=== PATIENT | female | born 1970 | race Caucasian/White ===

== ENCOUNTER 2016-06-02 11:35 | Emergency (ER) | payer SELFPAY ==
--- NOTE | 2016-06-02 12:24 | ER Document Report ---
ED Medical Screen (RME) - General Stated Complaint: SORE THROAT Notes: 45 yo female c/o fever, bodyaches, sore throat, ear pain x 2 days. no known sick exposures. no flu shot this season. self pay TRAVEL OUTSIDE OF THE [place] IN LAST 30 DAYS: No - Related Data Allergies/Adverse Reactions: Penicillins Allergy (Verified 07/13/14 17:53) Sulfa (Sulfonamide Antibiotics) Allergy (Verified 07/13/14 17:53) Past Medical History Endocrine Medical History: Denies: Hx Diabetes Mellitus Type 2 Psychiatric Medical History: Reports: Hx Depression Past Surgical History: Reports: Hx Section - x 2, Hx Gynecologic Surgery - reports unable to get now, Hx Orthopedic Surgery - great toe right foot, tendon loosened in right wrist - Immunizations Hx Diphtheria, Pertussis, Tetanus Vaccination: Yes Physical Exam - Vital signs Vitals: Temp Pulse Resp BP Pulse Ox 102.7 F H 106 H 20 144/90 H 99 06/02/16 11:56 06/02/16 11:56 06/02/16 11:56 06/02/16 11:56 06/02/16 11:56 Course - Vital Signs Vital signs: Temp Pulse Resp BP Pulse Ox 102.7 F H 106 H 20 144/90 H 99 06/02/16 11:56 06/02/16 11:56 06/02/16 11:56 06/02/16 11:56 06/02/16 11:56
[2016-06-02] MEDS ORDERED: KETOROLAC TROMETHAMINE 60 MG/2 ML SDV IM ONE (13:01)
[2016-06-02] MEDS ORDERED: DEXAMETHASONE SOD PHOS INJ 10 MG/1 ML VIAL IM ONE (13:01)
--- NOTE | 2016-06-02 13:08 | ER Document Report ---
ED Flu Like - General Chief Complaint: Fever Stated Complaint: SORE THROAT Time seen by provider: 13:03 Mode of Arrival: Ambulatory Information source: Patient Notes: 45-year-old female presents to ED for sore throat ear pain bodyaches and fever for the last 2 days. TRAVEL OUTSIDE OF THE [place] IN LAST 30 DAYS: No - HPI Onset: Other - 2 days Timing/Duration: Intermittent Quality of pain: Achy, Other - Sore throat Severity: Moderate Pain Level: 4 Associated symptoms: Body/muscle aches, Earache, Fever, Sore throat Similar symptoms previously: No Recently seen / treated by doctor: No - Related Data Allergies/Adverse Reactions: Penicillins Allergy (Verified 06/02/16 12:24) Sulfa (Sulfonamide Antibiotics) Allergy (Verified 06/02/16 12:24) Past Medical History - General Information source: Patient - Social History Smoking Status: Current Every Day Smoker Cigarette use (# per day): Yes - pack per day Chew tobacco use (# tins/day): No Smoking Education Provided: Yes - less than 2 minutes Frequency of alcohol use: Social Drug Abuse: None Occupation: [employer] Lives with: Friend Family History: Malignancy Patient has suicidal ideation: No Patient has homicidal ideation: No - Past Medical History Cardiac Medical History: Reports: None Pulmonary Medical History: Reports: None EENT Medical History: Reports: None Neurological Medical History: Reports: None Endocrine Medical History: Reports: None Renal/ Medical History: Reports: None Malignancy Medical History: Reports: None GI Medical History: Reports: None Musculoskeltal Medical History: Reports None Skin Medical History: Reports None Psychiatric Medical History: Reports: Hx Depression Traumatic Medical History: Reports: None Infectious Medical History: Reports: None Past Surgical History: Reports: Hx Section - x 2, Hx Gynecologic Surgery - reports unable to get now, Hx Orthopedic Surgery - great toe right foot, tendon loosened in right wrist - Immunizations Hx Diphtheria, Pertussis, Tetanus Vaccination: Yes Review of Systems - Review of Systems Constitutional: Fever, Recent illness EENT: Ear pain, Nose discharge, Throat pain Cardiovascular: No symptoms reported Respiratory: Cough Gastrointestinal: No symptoms reported Genitourinary: No symptoms reported Female Genitourinary: No symptoms reported Musculoskeletal: No symptoms reported Skin: No symptoms reported Hematologic/Lymphatic: No symptoms reported Neurological/Psychological: No symptoms reported Physical Exam - Vital signs Vitals: Temp Pulse Resp BP Pulse Ox 102.7 F H 106 H 20 144/90 H 99 06/02/16 11:56 06/02/16 11:56 06/02/16 11:56 06/02/16 11:56 06/02/16 11:56 Interpretation: Normal - General General appearance: Appears well, Alert - HEENT Head: Normocephalic, Atraumatic Eyes: Normal Pupils: PERRL Ears: Normal External canal: Normal Tympanic membrane: Normal Sinus: Normal Nasal: Purulent discharge, Swelling Mouth/Lips: Normal Mucous membranes: Normal Pharynx: Normal Neck: Normal - Respiratory Respiratory status: No respiratory distress Chest status: Nontender Breath sounds: Nonproductive cough Chest palpation: Normal - Cardiovascular Rhythm: Regular Heart sounds: Normal auscultation Murmur: No - Abdominal Inspection: Normal Distension: No distension Bowel sounds: Normal Tenderness: Nontender Organomegaly: No organomegaly - Back Back: Normal, Nontender - Extremities General upper extremity: Normal inspection, Nontender, Normal color, Normal ROM , Normal temperature General lower extremity: Normal inspection, Nontender, Normal color, Normal ROM , Normal temperature, Normal weight bearing. No: Angela's sign - Neurological Neuro grossly intact: Yes Cognition: Normal Orientation: AAOx4 [place] Coma Scale Eye Opening: Spontaneous [place] Coma Scale Verbal: Oriented [place] Coma Scale Motor: Obeys Commands [place] Coma Scale Total: 15 Speech: Normal Motor strength normal: LUE, RUE, LLE, RLE Sensory: Normal - Psychological Associated symptoms: Normal affect, Normal mood - Skin Skin Temperature: Warm Skin Moisture: Dry Skin Color: Normal Course - Re-evaluation Re-evalutation: 06/02/16 14:22 Temperature 100.1 pulse 103 at discharge. Patient was treated with Toradol Decadron and azithromycin for her strep throat due to her allergy to penicillin. We'll discharge home with prescription for azithromycin. - Vital Signs Vital signs: Temp Pulse Resp BP Pulse Ox 102.7 F H 106 H 20 144/90 H 99 06/02/16 11:56 06/02/16 11:56 06/02/16 11:56 06/02/16 11:56 06/02/16 11:56 Discharge - Discharge Clinical Impression: Strep pharyngitis Condition: Stable Disposition: HOME, SELF-CARE Instructions: Family Physicians / Practices Additional Instructions: STREP THROAT: Your sore throat is due to the streptococcus germ (strep throat). Strep throat usually makes you feel quite ill with fever and aches, headache, swollen sore throat, and tender bumps under the angles of the jaw. Strep throat requires antibiotic treatment. Although the sore throat may go away by itself, complications such as rheumatic fever, kidney disease, or throat abscess can occur. We usually prescribe antibiotics by mouth. Be sure to take the medicine until it's gone. If you stop early, the strep may come back. If you are vomiting, are severely ill, or can't remember to take pills, we can give you an antibiotic shot. Take acetaminophen or ibuprofen for pain and fever. Sip frequent clear liquids, or use popsicles or ice chips. Anesthetic sprays or lozenges may help. Make sure the air in the room is not too dry. Avoid using decongestants or antihistamines. Call the doctor if there is no improvement in three days, or if you have difficulty breathing, increasing throat pain, high fever, rash, or frequent vomiting. Azithromycin Azithromycin (Zithromax) is a broad spectrum antibiotic in the same class as erythromycin. It can treat a variety of bacterial infections, but is most frequently used for respiratory infections. Azithromycin is extremely long-lasting. It accumulates in body tissues and continues to kill bacteria for many days. In order to improve absorption, Azithromycin should be taken at least one hour before or two hours after a meal. It does not have the same strong tendency to upset the stomach as erythromycin and is usually very well tolerated. Patients who have had a rash or other true allergic reactions to erythromycin should not take this medication. Call if you develop gastrointestinal distress, severe diarrhea, rash, hives, itching, or shortness of breath. STEROID MEDICATION: You have been given a medicine of the cortisone/steroid class. This medication is used to control inflammation or allergy. It is usually only given for a short period of time, until the acute process subsides. There are usually no side effects from short-term use of cortisone-like medications. Some persons feel an increased sense of well-being and are not sleepy at bedtime. Long-term use of cortisone medications is best avoided, unless required for a severe condition. If your condition does not remit, or relapses after the course of corticosteroid medication, you should consult your physician. Toradol Injection You have been given an injection of ketorolac tromethamine (Toradol). This is an excellent, safe drug for pain control. It also has potent antiinflammatory action. You should have significant pain relief within about one hour. Toradol is not addicting and is non-sedating. It does not interfere with driving or work. Call or return if you develop itching, hives, shortness of breath, or rash. FOLLOW-UP CARE: If you have been referred to a physician for follow-up care, call the physician s office for an appointment as you were instructed or within the next two days. If you experience worsening or a significant change in your symptoms, notify the physician immediately or return to the Emergency Department at any time for re-evaluation. Prescriptions: Azithromycin [Zithromax 250 mg Tablet] 250 mg PO ASDIR PRN #6 tablet PRN Reason: Forms: Elevated Blood Pressure, Smoking Cessation Education, Return to Work
[2016-06-02] MEDS ORDERED: AZITHROMYCIN 250 MG TABLET PO ONE (13:21)
[2016-06-02 14:32] VITALS: BP 132/79
== END 2016-06-02 14:28 | disposition home or self-care (01) ==
LOC: ER 11:35
DX: J02.0 Streptococcal pharyngitis (principal); R50.9 Fever, unspecified; J02.9 Acute pharyngitis, unspecified; H92.09 Otalgia, unspecified ear; R52 Pain, unspecified; F17.210 Nicotine dependence, cigarettes, uncomplicated
CPT/HCPCS: 99283; 96372; 87880; 87804; J1885; J1100

== ENCOUNTER 2016-06-05 10:13 | Emergency (ER) | payer SELFPAY ==
--- NOTE | 2016-06-05 10:20 | ER Document Report ---
ED Medical Screen (RME) - General Stated Complaint: SORE THROAT Time seen by provider: 10:19 Mode of Arrival: Ambulatory Information source: Patient Notes: 45-year-old female with persistent sore throat since Tuesday. The gaze azithromycin that she was prescribed is not helping with the symptoms. Vital signs are stable in triage. TRAVEL OUTSIDE OF THE [place] IN LAST 30 DAYS: No - Related Data Allergies/Adverse Reactions: Penicillins Allergy (Verified 06/05/16 10:18) Sulfa (Sulfonamide Antibiotics) Allergy (Verified 06/05/16 10:18) Past Medical History Endocrine Medical History: Denies: Hx Diabetes Mellitus Type 2 Renal/ Medical History: Denies: Hx Peritoneal Dialysis Psychiatric Medical History: Reports: Hx Depression Past Surgical History: Reports: Hx Section - x 2, Hx Gynecologic Surgery - reports unable to get now, Hx Orthopedic Surgery - great toe right foot, tendon loosened in right wrist - Immunizations Hx Diphtheria, Pertussis, Tetanus Vaccination: Yes Physical Exam - Vital signs Vitals: Temp Pulse Resp BP Pulse Ox 98.1 F 98 16 152/93 H 99 06/05/16 10:18 06/05/16 10:18 06/05/16 10:18 06/05/16 10:18 06/05/16 10:18 Course - Vital Signs Vital signs: Temp Pulse Resp BP Pulse Ox 98.1 F 98 16 152/93 H 99 06/05/16 10:18 06/05/16 10:18 06/05/16 10:18 06/05/16 10:18 06/05/16 10:18
--- NOTE | 2016-06-05 10:43 | ER Document Report ---
HPI - HPI Patient complains to provider of: sore throat Onset: Last week Onset/Duration: Persistent Quality of pain: Achy Pain Level: 4 Context: Patient complains of sore throat and right ear pain. Patient reports being here 3 days ago being diagnosed with strep pharyngitis. Patient is still taking her antibiotic that she was prescribed from her visit 3 days ago. Patient complains of continued pain which prompted her visit today. Associated Symptoms: Earache, Sore throat. denies: Fever Exacerbated by: Denies Relieved by: Denies Similar symptoms previously: Yes Recently seen / treated by doctor: Yes - ROS ROS below otherwise negative: Yes Systems Reviewed and Negative: Yes All other systems reviewed and negative - EENT EENT: REPORTS: Sore Throat, Ear Pain - RESPIRATORY Respiratory: DENIES: Coughing - GASTROINTESTINAL Gastrointestinal: DENIES: Patient vomiting - REPRODUCTIVE Reproductive: DENIES: : - MUSCULOSKELETAL Musculoskeletal: DENIES: Back Pain, Neck Pain - DERM Skin Color: Normal Skin Problems: None Past Medical History - General Information source: Patient - Social History Smoking Status: Current Every Day Smoker Chew tobacco use (# tins/day): No Frequency of alcohol use: Occasional Drug Abuse: None Occupation: [employer] Family History: Malignancy Patient has suicidal ideation: No Patient has homicidal ideation: No Endocrine Medical History: Denies: Hx Diabetes Mellitus Type 2 Renal/ Medical History: Denies: Hx Peritoneal Dialysis Psychiatric Medical History: Reports: Hx Depression Past Surgical History: Reports: Hx Section - x 2, Hx Gynecologic Surgery - reports unable to get now, Hx Orthopedic Surgery - great toe right foot, tendon loosened in right wrist - Immunizations Hx Diphtheria, Pertussis, Tetanus Vaccination: Yes Vertical Provider Document - CONSTITUTIONAL Agree With Documented VS: Yes Exam Limitations: No Limitations General Appearance: WD/WN, No Apparent Distress - INFECTION CONTROL TRAVEL OUTSIDE OF THE [place] IN LAST 30 DAYS: No - HEENT HEENT: Atraumatic, Normocephalic, Pharyngeal Tenderness, Pharyngeal Erythema. negative: Pharyngeal Exudate, Tympanic Membrane Red, Tympanic Membrane Bulging - NECK Neck: Normal Inspection, Supple. negative: Lymphadenopathy-Left, Lymphadenopathy-Right - RESPIRATORY Respiratory: Breath Sounds Normal, No Respiratory Distress O2 Sat by Pulse Oximetry: 99 - CARDIOVASCULAR Cardiovascular: Regular Rate, Regular Rhythm, No Murmur - MUSCULOSKELETAL/EXTREMETIES Musculoskeletal/Extremeties: MAEW - NEURO Level of Consciousness: Awake, Alert, Appropriate Motor/Sensory: No Motor Deficit - DERM Integumentary: Warm, Dry, No Rash Course - Vital Signs Vital signs: Temp Pulse Resp BP Pulse Ox 98.1 F 98 16 152/93 H 99 06/05/16 10:18 06/05/16 10:18 06/05/16 10:18 06/05/16 10:18 06/05/16 10:18 Discharge - Discharge Clinical Impression: Sore throat, Hx of streptococcal pharyngitis Condition: Stable Disposition: HOME, SELF-CARE Instructions: Strep Throat ([facility]), Oral Narcotic Medication ([facility]) Additional Instructions: Return immediately for any new or worsening symptoms Followup with your primary care provider, call tomorrow to make a followup appointment Finish out your current course of antibiotic treatment Follow-up with a primary doctor to have your blood pressure reevaluated Prescriptions: Hydrocodone/Acetaminophen [[place] 5-325 Tablet] 1 each PO Q4 PRN #12 tablet PRN Reason: Forms: Return to Work Referrals: [facility] [Provider Group] - Follow up as needed
[2016-06-05 11:12] VITALS: BP 152/90
== END 2016-06-05 11:12 | disposition home or self-care (01) ==
LOC: ER 10:13
DX: J02.9 Acute pharyngitis, unspecified (principal); H92.01 Otalgia, right ear; F17.210 Nicotine dependence, cigarettes, uncomplicated
CPT/HCPCS: 99282

== ENCOUNTER 2018-08-19 09:14 | Emergency (ER) | payer SELFPAY ==
[2018-08-19] MEDS ORDERED: IBUPROFEN 800 MG TABLET PO ONE (09:36)
--- NOTE | 2018-08-19 09:38 | ER Document Report ---
HPI - HPI Patient complains to provider of: right index finger injury Time Seen by Provider: 08/19/18 09:29 Onset: Yesterday Onset/Duration: Sudden, Persistent Quality of pain: Throbbing Severity: Severe Pain Level: 5 Context: Patient presents emergency department with complaints of right index finger injury. 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 She reports she put a board in the window to hold the window up because it was broken and when she was cleaning she hit the board and the window fell onto her first and second digits on her right hand. She reports right index finger with the worst pain. Reports hurts to move. Took Tylenol without relief of symptoms. Denies past medical history of injury to the hand. Associated Symptoms: None Exacerbated by: Movement Relieved by: Denies Similar symptoms previously: No Recently seen / treated by doctor: No - REPRODUCTIVE Reproductive: DENIES: : Past Medical History - General Information source: Patient - Social History Smoking Status: Current Every Day Smoker Cigarette use (# per day): Yes Frequency of alcohol use: Occasional Drug Abuse: None Family History: Malignancy Patient has suicidal ideation: No Patient has homicidal ideation: No Endocrine Medical History: Denies: Hx Diabetes Mellitus Type 2 Renal/ Medical History: Denies: Hx Peritoneal Dialysis Psychiatric Medical History: Reports: Hx Depression Past Surgical History: Reports: Hx Section - x 2, Hx Gynecologic Surgery - reports unable to get now, Hx Orthopedic Surgery - great toe right foot, tendon loosened in right wrist - Immunizations Hx Diphtheria, Pertussis, Tetanus Vaccination: Yes Vertical Provider Document - CONSTITUTIONAL Agree With Documented VS: Yes Exam Limitations: No Limitations General Appearance: WD/WN, No Apparent Distress - INFECTION CONTROL TRAVEL OUTSIDE OF THE [place] IN LAST 30 DAYS: No - HEENT HEENT: Atraumatic, Normocephalic - NECK Neck: Supple - RESPIRATORY Respiratory: No Respiratory Distress - CARDIOVASCULAR Cardiovascular: Regular Rate - MUSCULOSKELETAL/EXTREMETIES Musculoskeletal/Extremeties: MAEW, FROM, Tender - right index distal finger ttp, swollen, +cap refill, no obvious deformity, c/o pain with movement - NEURO Level of Consciousness: Awake, Alert, Appropriate Motor/Sensory: No Motor Deficit - DERM Integumentary: Warm, Dry Course - Re-evaluation Re-evalutation: 08/19/18 10:00 X-ray negative for any acute fracture. Patient was instructed on plan of care treatment. 08/19/18 10:09 Finger splint placed for patient comfort. Patient again instructed on negative x-ray plan of care of Motrin rest ice follow-up as indicated. She verbalized understanding all instructions. - Vital Signs Vital signs: Temp Pulse Resp BP Pulse Ox 98.2 F 91 16 142/80 H 100 08/19/18 09:20 08/19/18 09:20 08/19/18 09:20 08/19/18 09:20 08/19/18 09:20 - Diagnostic Test Radiology reviewed: Image reviewed, Reports reviewed - EXAM DESCRIPTION: FINGER RIGHT COMPLETED DATE/TIME: 08/19/2018 9:41 am REASON FOR STUDY: smashed pointer finger in window COMPARISON: None. NUMBER OF VIEWS: Three views. TECHNIQUE: AP, lateral, and oblique images acquired of the right second finger. LIMITATIONS: None. FINDINGS: MINERALIZATION: Normal. BONES: No acute fracture or dislocation. No worrisome bone lesions. SOFT TISSUES: No soft tissue swelling. No foreign body. OTHER: No other significant finding. IMPRESSION: NO RADIOGRAPHIC EVIDENCE OF ACUTE INJURY. COMMENT: SITE OF TRAUMA/COMPLAINT MARKED/STAMP COMPLETED: YES. Procedures - Immobilization Right 2nd digit Pre-Proc Neuro Vasc Exam: Normal Immobilizer type: Finger splint (Static) Performed by: PCT - anderia Post-Proc Neuro Vasc Exam: Unchanged from pre-exam Alignment checked and good: Yes Discharge - Discharge Clinical Impression: Crushing injury of right index finger Qualifiers: Encounter type: initial encounter Qualified Code(s): S67.190A - Crushing injury of right index finger, initial encounter Condition: Stable Disposition: HOME, SELF-CARE Instructions: Crush Injury ([facility]), Ice & Elevation ([facility]), Temporary Splint ([facility]) Additional Instructions: *You have been evaluated for a crush injury to your finger *Maintain the splint for comfort and protection *Rest/Ice/Elevate your finger *Follow up with orthopedics for continued pain *Take ibuprofen as indicated for pain *Return to ED for worsening condition, changes, needs Monitor your blood pressure. Your blood pressure was elevated today. This may be because you were anxious, in pain or because you need medication. It is important to follow up with your primary care provider for full evaluation. Forms: Elevated Blood Pressure, Return to Work
--- NOTE | 2018-08-19 09:52 | RADIOLOGY REPORT (SQ) ---
EXAM DESCRIPTION: FINGER RIGHT COMPLETED DATE/TIME: 08/19/2018 9:41 am REASON FOR STUDY: smashed pointer finger in window COMPARISON: None. NUMBER OF VIEWS: Three views. TECHNIQUE: AP, lateral, and oblique images acquired of the right second finger. LIMITATIONS: None. FINDINGS: MINERALIZATION: Normal. BONES: No acute fracture or dislocation. No worrisome bone lesions. SOFT TISSUES: No soft tissue swelling. No foreign body. OTHER: No other significant finding. IMPRESSION: NO RADIOGRAPHIC EVIDENCE OF ACUTE INJURY. COMMENT: SITE OF TRAUMA/COMPLAINT MARKED/STAMP COMPLETED: YES. TECHNICAL DOCUMENTATION: JOB ID: [id number] [employer]- All Rights Reserved Reading location - IP/workstation name: [email or web address]
[2018-08-19 10:27] VITALS: BP 136/72
== END 2018-08-19 10:28 | disposition home or self-care (01) ==
LOC: ER 09:14
DX: S67.190A Crushing injury of right index finger, initial encounter (principal); W20.8XXA Other cause of strike by thrown, projected or falling object, initial encounter; Y93.89 Activity, other specified; Y99.0 Civilian activity done for income or pay; F17.200 Nicotine dependence, unspecified, uncomplicated; F17.210 Nicotine dependence, cigarettes, uncomplicated
CPT/HCPCS: 99283

== ENCOUNTER 2019-04-03 09:25 | Emergency (ER) | payer SELFPAY ==
--- NOTE | 2019-04-03 10:05 | ER Document Report ---
HPI - HPI Time Seen by Provider: 04/03/19 09:58 Notes: Patient is a 48-year-old female with no significant past medical history who presents complaining of bilateral ear pain and sore throat that began last night. She has been taking some Motrin for her symptoms. She is able to eat and drink without difficulty otherwise. She is urinating normally and having normal bowel movements. No hoarseness or drooling. Denies any headache, fever, neck pain, changes in vision/speech/mentation/hearing, URI, chest pain, palpitations, syncope, cough, shortness of breath, wheeze, dyspnea, abdominal pain, nausea/vomiting/diarrhea, urinary retention, dysuria, hematuria, or rash. - ROS Systems Reviewed and Negative: Yes All other systems reviewed and negative - REPRODUCTIVE Reproductive: DENIES: : Past Medical History - Social History Smoking Status: Current Every Day Smoker Family History: Malignancy Endocrine Medical History: Denies: Hx Diabetes Mellitus Type 2 Renal/ Medical History: Denies: Hx Peritoneal Dialysis Psychiatric Medical History: Reports: Hx Depression Past Surgical History: Reports: Hx Section - x 2, Hx Gynecologic Surgery - reports unable to get now, Hx Orthopedic Surgery - great toe right foot, tendon loosened in right wrist - Immunizations Hx Diphtheria, Pertussis, Tetanus Vaccination: Yes Vertical Provider Document - CONSTITUTIONAL Agree With Documented VS: Yes Notes: PHYSICAL EXAMINATION: GENERAL: Well-appearing, well-nourished and in no acute distress. A&Ox4. Answers questions appropriately. Moves comfortably w/o notable distress HEAD: Atraumatic, normocephalic. EYES: Pupils equal round and reactive to light, extraocular movements intact, sclera anicteric, conjunctiva are normal. ENT: EAC clear b/l. TM's intact b/l without erythema, fluid, or perforation. Nares patent and with clear discharge. oropharynx mild erythema without exudates. 1+ tonsilar hypertrophy with mild erythema no exudate. No palatine shift. Uvula midline. No tongue protrusion. No drooling, hoarseness, or airway compromise. Moist mucous membranes. No sinus tenderness. NECK: Normal range of motion, supple without lymphadenopathy. No rigidity/meningismus. LUNGS: Breath sounds clear to auscultation bilaterally and equal. No wheezes r ales or rhonchi. No retractions HEART: Regular rate and rhythm without murmurs, rubs, gallops. NEUROLOGICAL: Normal speech, normal gait. PSYCH: Normal mood, normal affect. SKIN: Warm, Dry, normal turgor, no rashes or lesions noted. - INFECTION CONTROL TRAVEL OUTSIDE OF THE [place] IN LAST 30 DAYS: No Course - Re-evaluation Re-evalutation: 04/03/19 Patient is an afebrile, well-hydrated, 48-year-old female who presents to the emergency department with otalgia and pharyngitis, suspect viral. Vitals are acceptable without significant tachycardia, tachypnea, or hypoxia. PE is otherwise unremarkable. She is nontoxic-appearing and is tolerating p.o. without difficulty. Lungs are clear to auscultation bilaterally. Rapid strep was negative with a throat culture pending. No further labs or imaging warranted at this time. Low suspicion for any meningitis, sepsis, peritonsillar/pharyngeal abscess, respiratory compromise, Casey's, or other emergent systemic condition at this time. Patient is aware this condition can change from initial presentation and she needs to monitor symptoms closely. Conservative measures otherwise for symptoms. Recheck with your PCM in 2-3 days. Return to the ED with any worsening/concerning symptoms otherwise as reviewed in discharge. Patient is in agreement. Discharge - Discharge Clinical Impression: Sore throat, Otalgia, bilateral Condition: Stable Disposition: HOME, SELF-CARE Additional Instructions: Maintain adequate fluid intake Take meds as directed Salt water gargles, throat sprays, mouthwash rinse, peroxide gargles tylenol/ibuprofen as needed New toothbrush tomorrow evening over the counter cold medication as needed for symptoms F/u: with your PCM in 3-5 days for a recheck Consider consult with ENT for ongoing/worsening symptoms Return to the ED with any fever, worsening pain, chest pain, neck pain/stiffness, shortness of breath, cough, drooling, trouble swallowing/breathing, abdominal pain, n/v/d, rash, or worsening/concerning symptoms otherwise. Forms: Smoking Cessation Education Referrals: PETE CROUCH DO [ASSOCIATE] - Follow up as needed
[2019-04-03 10:07] VITALS: BP 135/77
== END 2019-04-03 11:27 | disposition home or self-care (01) ==
LOC: ER 09:25
DX: H92.03 Otalgia, bilateral (principal); J02.9 Acute pharyngitis, unspecified; F17.200 Nicotine dependence, unspecified, uncomplicated
CPT/HCPCS: 87070; 87880; 99283

== ENCOUNTER 2019-04-22 09:02 | Emergency (ER) | payer SELFPAY ==
[2019-04-22] MEDS ORDERED: HYDROCODONE/ACETAMINOPHEN 5-325 MG TABLET PO ONE (09:10)
[2019-04-22 09:11] VITALS: BP 159/85
--- NOTE | 2019-04-22 09:11 | ER Document Report ---
HPI - HPI Patient complains to provider of: abscess Time Seen by Provider: 04/22/19 09:04 Onset: Last week Onset/Duration: Worse Quality of pain: Achy Pain Level: 2 Context: Patient presents complaining of abscess to right axilla for the past week. Patient denies any fever. Patient reports history of having numerous abscesses to the axilla over the years. Associated Symptoms: denies: Fever Exacerbated by: Movement Relieved by: Denies Similar symptoms previously: Yes Recently seen / treated by doctor: No - ROS ROS below otherwise negative: Yes Systems Reviewed and Negative: Yes All other systems reviewed and negative - CONSTITUTIONAL Constitutional: DENIES: Fever, Chills - GASTROINTESTINAL Gastrointestinal: DENIES: Nausea - REPRODUCTIVE Reproductive: DENIES: : - MUSCULOSKELETAL Musculoskeletal: REPORTS: Extremity pain - DERM Skin Color: Normal Notes: Abscess to right axilla Past Medical History - General Information source: Patient - Social History Smoking Status: Current Every Day Smoker Frequency of alcohol use: None Drug Abuse: None Occupation: None Family History: Malignancy Patient has suicidal ideation: No Patient has homicidal ideation: No Endocrine Medical History: Denies: Hx Diabetes Mellitus Type 2 Renal/ Medical History: Denies: Hx Peritoneal Dialysis Psychiatric Medical History: Reports: Hx Depression Past Surgical History: Reports: Hx Section - x 2, Hx Gynecologic Surgery - reports unable to get now, Hx Orthopedic Surgery - great toe right foot, tendon loosened in right wrist - Immunizations Hx Diphtheria, Pertussis, Tetanus Vaccination: Yes Vertical Provider Document - CONSTITUTIONAL Agree With Documented VS: Yes Exam Limitations: No Limitations General Appearance: WD/WN, No Apparent Distress - INFECTION CONTROL TRAVEL OUTSIDE OF THE [place] IN LAST 30 DAYS: No - HEENT HEENT: Atraumatic, Normocephalic - NECK Neck: Normal Inspection - RESPIRATORY Respiratory: Breath Sounds Normal, No Respiratory Distress - CARDIOVASCULAR Cardiovascular: Regular Rate, Regular Rhythm - BACK Back: Normal Inspection - MUSCULOSKELETAL/EXTREMETIES Musculoskeletal/Extremeties: MAEW - NEURO Level of Consciousness: Awake, Alert, Appropriate Motor/Sensory: No Motor Deficit - DERM Integumentary: Warm, Dry Course - Re-evaluation Re-evalutation: 04/22/19 10:09 Patient has scarring worrisome for likely history of hidradenitis. Patient educated on management of this skin condition. Patient encouraged to follow-up with primary doctor or dermatology for further management. Procedures - Incision and Drainage Right Arm Type: Simple Anesthetic type: 1% Lidocaine Blade size: 11 I&D procedure: Betadine prep applied Incision Method: Incision made by scalpel Amount/type of drainage: small amount of purulent drainage Discharge - Discharge Clinical Impression: Encounter for incision and drainage procedure, Abscess, Hidradenitis suppurativa Condition: Stable Disposition: HOME, SELF-CARE Instructions: Doxycycline ([facility]), Post Incision and Drainage Additional Instructions: Return immediately for any new or worsening symptoms Followup with your primary care provider, call tomorrow to make a followup appointment Follow-up with dermatology for any persistent problems You may use the surgical soap to cleanse area Prescriptions: Doxycycline Hyclate 100 mg PO BID #20 capsule Naproxen [Naprosyn 250 Nmg Tablet] 1 tab PO BID #14 tablet Promethazine HCl [Phenergan 25 mg Tablet] 25 mg PO Q6H PRN #10 tablet PRN Reason: Referrals: [facility] [Provider Group] - Follow up as needed [facility] [Provider Group] - Follow up as needed
== END 2019-04-22 10:12 | disposition home or self-care (01) ==
LOC: ER 09:02
DX: L02.411 Cutaneous abscess of right axilla (principal); L73.2 Hidradenitis suppurativa; F17.200 Nicotine dependence, unspecified, uncomplicated
CPT/HCPCS: 99283

== ENCOUNTER 2019-07-24 09:08 | Emergency (ER) | payer SELFPAY ==
[2019-07-24] MEDS ORDERED: KETOROLAC TROMETHAMINE 60 MG/2 ML SDV IM ONE (09:30)
[2019-07-24] MEDS ORDERED: HYDROCODONE/ACETAMINOPHEN 5-325 MG TABLET PO ONE (09:30)
--- NOTE | 2019-07-24 09:31 | ER Document Report ---
HPI - HPI Time Seen by Provider: 07/24/19 09:21 Onset: Other - 3 days Onset/Duration: Persistent Quality of pain: Sharp Pain Level: 5 Context: Patient states she was lifting a heavy object 3 days ago and had low back pain. Patient reports she has had pain in this location before although not as severe. Patient denies any radiculopathy or paresthesia. No urinary retention or incontinence. Patient denies any fever. Associated Symptoms: denies: Fever, Headache, Nausea, Vomiting Exacerbated by: Standing, Movement, Walking Relieved by: Denies Similar symptoms previously: Yes Recently seen / treated by doctor: No - ROS ROS below otherwise negative: Yes Systems Reviewed and Negative: Yes All other systems reviewed and negative - CONSTITUTIONAL Constitutional: DENIES: Fever, Chills - NEURO Neurology: DENIES: Weakness - GASTROINTESTINAL Gastrointestinal: DENIES: Nausea - URINARY Urinary: DENIES: Dysuria, Urgency, Frequency - REPRODUCTIVE Reproductive: DENIES: : - MUSCULOSKELETAL Musculoskeletal: REPORTS: Back Pain. DENIES: Extremity pain, Neck Pain - DERM Skin Color: Normal Skin Problems: None Past Medical History - General Information source: Patient - Social History Smoking Status: Current Every Day Smoker Frequency of alcohol use: None Drug Abuse: None Occupation: construction Lives with: Family Family History: Malignancy - Medical History Medical History: Negative Endocrine Medical History: Denies: Hx Diabetes Mellitus Type 2 Renal/ Medical History: Denies: Hx Peritoneal Dialysis Psychiatric Medical History: Reports: Hx Depression Past Surgical History: Reports: Hx Section - x 2, Hx Gynecologic Surgery - reports unable to get now, Hx Orthopedic Surgery - great toe right foot, tendon loosened in right wrist - Immunizations Hx Diphtheria, Pertussis, Tetanus Vaccination: Yes Vertical Provider Document - CONSTITUTIONAL Agree With Documented VS: Yes Exam Limitations: No Limitations General Appearance: WD/WN, No Apparent Distress Notes: PHYSICAL EXAMINATION: GENERAL: Well-appearing, well-nourished and in no acute distress. HEAD: Atraumatic, normocephalic. EYES: sclera clear, anicteric, conjunctiva are normal. ENT: nares patent, Moist mucous membranes. NECK: Normal range of motion, supple no lymphadenopathy LUNGS: respirations unlabored HEART: Regular rate and rhythm without murmurs EXTREMITIES: Normal range of motion, no pitting or edema. No cyanosis. BACK: Lower lumbar paraspinal tenderness, lower lumbar midline tenderness, no deformities or step-offs. No CVA tenderness. NEUROLOGICAL: Cranial nerves grossly intact. Normal speech, normal gait. No saddle anesthesia. PSYCH: Normal mood, normal affect. SKIN: Warm, Dry, normal turgor, no rashes or lesions noted. - INFECTION CONTROL TRAVEL OUTSIDE OF THE [place] IN LAST 30 DAYS: No Course - Re-evaluation Re-evalutation: 07/24/19 11:[address] Patel regarding patient presentation and radiology report. Recommends obtaining MRI today and having patient follow-up with him in his office at 8 AM on this week. 07/24/19 13:39 MRI completed, patient with acute T12 compression fracture without retropulsion. Consulted with Dr. Walls who agrees with initial plan of care to discharge and have patient follow-up in the orthopedic office on at 8 AM. Patient will be provided with copies of her imaging reports. - Vital Signs Vital signs: Temp Pulse Resp BP Pulse Ox 98.3 F 101 H 22 H 131/90 H 100 07/24/19 09:08 07/24/19 09:08 07/24/19 09:08 07/24/19 09:08 07/24/19 09:08 - Diagnostic Test Radiology reviewed: Reports reviewed Discharge - Discharge Clinical Impression: Low back pain Qualifiers: Chronicity: unspecified Back pain laterality: midline Sciatica presence: without sciatica Qualified Code(s): M54.5 - Low back pain T12 compression fracture Qualifiers: Encounter type: initial encounter Qualified Code(s): S22.080A - Wedge compression fracture of T11-T12 vertebra, initial encounter for closed fracture Condition: Stable Disposition: HOME, SELF-CARE Instructions: Compression Fracture of the Spine ([facility]), Ice Packs ([facility]), Oral Narcotic Medication ([facility]) Additional Instructions: Return immediately for any new or worsening symptoms Followup with Dr. Patel in his office at 8 AM on . Prescriptions: Lidocaine [Lidoderm 5% (700 mg) Transdermal Patch] 1 patch TP DAILY PRN #10 adh..patch PRN Reason: Oxycodone HCl/Acetaminophen [Percocet 5-325 mg Tablet] 1 tab PO ASDIR PRN #15 tablet PRN Reason: Forms: Return to Work Referrals: SIMRAN PATEL MD [ACTIVE STAFF] - 07/26/19 8:00 am
[2019-07-24] MEDS ORDERED: LIDOCAINE 5% (700 MG) TRANSDERMAL ADH..PATCH TP ONE (09:39)
--- NOTE | 2019-07-24 10:38 | RADIOLOGY REPORT (SQ) ---
EXAM DESCRIPTION: L SPINE WHOLE IMAGES COMPLETED DATE/TIME: 07/24/2019 10:13 am REASON FOR STUDY: low back pain COMPARISON: 07/14/2009 NUMBER OF VIEWS: Five views including obliques. TECHNIQUE: AP, lateral, oblique, and sacral radiographic images acquired of the lumbar spine. LIMITATIONS: None. FINDINGS: MINERALIZATION: Normal. SEGMENTATION: 5 [id number] lumbar vertebral bodies. ALIGNMENT: Serpiginous thoracolumbar curvature VERTEBRAE: There is new anterior compression deformity with less than 50% anterior height loss of the T12 vertebral body with mild superior endplate irregularity. Remaining vertebral bodies demonstrate normal height. DISCS: Preserved height. No significant osteophytes or end plate irregularity. POSTERIOR ELEMENTS: Mild lower lumbar facet arthropathy. HARDWARE: None in the spine. PARASPINAL SOFT TISSUES: Normal. PELVIS: Intact as visualized. No fractures or worrisome bone lesions. SI joints intact. OTHER: No other significant finding. IMPRESSION: New anterior compression deformity of the T12 vertebral body with less than 50% height l oss compared to exam dated 07/14/2009. This would likely be amenable to kyphoplasty. MRI or bone sca n should be considered to confirm acuity. TECHNICAL DOCUMENTATION: JOB ID: [id number] 2010 [employer]- All Rights Reserved Reading location - IP/workstation name: [email or web address]
--- NOTE | 2019-07-24 13:30 | RADIOLOGY REPORT (SQ) ---
EXAM DESCRIPTION: MRI LUMBAR SPINE WITHOUT IMAGES COMPLETED DATE/TIME: 07/24/2019 1:12 pm REASON FOR STUDY: eval compression deformity T12 COMPARISON: Radiographs same date. TECHNIQUE: Sagittal and Axial imaging includes T1, T2, STIR and gradient echo sequences. Coronal T2/ HASTE imaging. LIMITATIONS: None. FINDINGS: VISUALIZED UPPER ABDOMEN: Limited evaluation. No acute or suspicious findings suggested. SEGMENTATION: No transitional anatomy. The lowest well-developed disc space is labeled L5-S1. ALIGNMENT: Mild scoliosis. VERTEBRAE: Compression fracture at T12. Upper endplate fracture with edema. Close to 30% height los s without retropulsion. BONE MARROW: Normal. No marrow replacement or reactive changes. DISC SIGNAL: Normal. No significant abnormal signal or loss of height. POSTERIOR ELEMENTS: Generally intact. No pars defect evident. HARDWARE: None in the spine. CORD AND CONUS: Normal in size and signal intensity. Conus at the appropriate level. SOFT TISSUES: No aortic aneurysm seen. No bulky retroperitoneal adenopathy or mass. No paraspinal mas s or fluid. L1-L2: No significant spinal stenosis or exit foraminal stenosis. L2-L3: No significant spinal stenosis or exit foraminal stenosis. L3-L4: No significant spinal stenosis or exit foraminal stenosis. L4-L5: Mild disc and facet disease with mild right foraminal narrowing. L5-S1: No significant spinal stenosis or exit foraminal stenosis. LOWER THORACIC: As above. SACRUM: Visualized upper sacrum intact. OTHER: No other significant findings. IMPRESSION: Acute T12 compression fracture without retropulsion. TECHNICAL DOCUMENTATION: JOB ID: [id number] 2010 [employer]- All Rights Reserved Reading location - IP/workstation name: [email or web address]
[2019-07-24 14:34] VITALS: BP 118/80
== END 2019-07-24 14:36 | disposition home or self-care (01) ==
LOC: ER 09:08
DX: S22.080A Wedge compression fracture of T11-T12 vertebra, initial encounter for closed fracture (principal); M54.5 Low back pain; M54.9 Dorsalgia, unspecified; X50.0XXA Overexertion from strenuous movement or load, initial encounter; F17.200 Nicotine dependence, unspecified, uncomplicated
CPT/HCPCS: 72110; 72148; 99283